=== PATIENT | female | born 1970 | race Caucasian/White ===

== ENCOUNTER 2016-07-01 06:03 | Day surgery (SDC) | payer OTHER ==
--- NOTE | 2016-06-30 19:14 | HISTORY AND PHYSICAL ---
ADMITTED: 07/01/2016 HISTORY OF PRESENT ILLNESS: The patient is a 46-year-old female with chief complaint of a painful left foot and ankle. States that her left ankle gives out multiple times. 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 Reports that it has gotten progressively worse. She wanted to finish out her season before moving forward with surgical procedures. She has tried and exhausted conservative care. MEDICAL/SURGICAL HISTORY: Past medical history: Includes a history of GERD, dysphagia, fatigue, insomnia and postmenopausal. Surgical history: Previous section. PRIMARY CARE PHYSICIAN: Jojo Solano MD MEDICATIONS: 1. Ibuprofen as needed. 2. Estradiol 2 mg tablets, take 1 by mouth daily. 3. Omeprazole 40 mg 1 by mouth daily. ALLERGIES: 1. CODEINE. 2. DROPERIDOL SOLUTION. SOCIAL HISTORY: She is , stay at home, self-employed. Does not smoke, rarely drinks. FAMILY HISTORY: Breast cancer. REVIEW OF SYSTEMS: Ten-point review of systems noncontributory to chief complaint. PHYSICAL EXAMINATION: GENERAL: The patient is alert, oriented x3. HEENT: PERRLA. Normocephalic. HEART: Regular rate and rhythm. Regular S1 and S2. No murmurs or gallops. LUNGS: Respiration clear to auscultation. No wheezing, rhonchi, or rales. ABDOMEN: Soft, tender, nondistended. No palpable masses. Normal tones. EXTREMITIES: Lower extremities/Vascular: Dorsalis pedis, posterior tibial pulses are palpable. Skin texture and turgor within normal limits. Orthopedically, there is pain to palpation of the Lisfranc joint with instability at the first cuneiform, second metatarsal base. Positive anterior drawer sign with 4 mm of anterior displacement, tenderness along the course of the anterior talofibular ligament. NEUROLOGIC: Deep tendon reflexes, epicritic sensations are intact. LAB/IMAGING: Imaging: Taken on an OrthoScan weightbearing platform revealed diastasis at the Lisfranc joint. Also, an ankle mortise slightly when in athletic position and noted diastasis under fluoroscopy at the lateral gutter. IMPRESSION: 1. Chronic ankle instability. 2. Lisfranc arthralgia. PLAN: The patient has consented for an arthrodesis of the Lisfranc joint with rigid internal fixation, ankle stabilization and an arthroscopy, as well as a harvesting of bone graft. There are no contraindications to surgery at this time. Surgery is scheduled on outpatient basis on 07/01/2016.
[~2016-07-01] VITALS: Ht 165.1 cm; Wt 80.4 kg
[~2016-07-01 06:03] MED LIST: CALCIUM600 M2 PO; DOCUSATE SODIU100 MG PO; ESTRADIOL2 MG PO; IBUPROFEN600 MG PO; MACROBID100 MG PO; OMEPRAZOLE20 M1 PO; PERCOCET1 TA1 PO; PX IRON27 MG PO; VITAMIN D-31000 UNIT PO
--- NOTE | 2016-07-01 07:07 | NUR ---
PREOP INSTRUCTIONS GIVEN AND SAFETY ISSUES DISCUSSED PT HAD QUESTIONS ANSWERED PT CONFIRMED PROCEDURE PT VERIFIED SIGNATURE PT MARKED SITE
[2016-07-01] MEDS ORDERED: ZOFRAN4 MG PO (10:22)
[2016-07-01] MEDS ORDERED: DILAUDID2 MG PO (10:22)
--- NOTE | 2016-07-01 10:24 | Provider's Discharge Care Plan ---
Problem, Goal, Plan Problem List 1. Sprain of other ligament of left ankle, subsequent encounter Goals: Improve function Instructions: Follow up as directed
--- NOTE | 2016-07-01 10:24 | Provider's Discharge Care Plan ---
Problem, Goal, Plan Problem List 1. Sprain of other ligament of left ankle, subsequent encounter Goals: Improve function Instructions: Follow up as directed
--- NOTE | 2016-07-01 11:06 | DIAGNOSTIC IMAGING REPORT ---
PROCEDURE: XR FOOT 3 VIEWS - LEFT INDICATION: POST-OP- IN PACU TECHNIQUE: Three views. COMPARISON: None. FINDINGS: There is a screw across the first cuneiform and the second metatarsal. Anatomic alignment. IMPRESSION: 1. Second metatarsal cuneiform joint fusion.
--- NOTE | 2016-07-01 11:45 | NUR ---
PT RETURNED FROM PACU LEFT FOOT ELEVATED ICE TO FOOT CAP REFILL LESS THAN 3 SEC DRESSING DRY AND INTACT
--- NOTE | 2016-07-01 12:00 | NUR ---
PT STATED PAIN INCREASEING SOME. DILAUDID 2 MG GIVEN PO AFTER FOOD
--- NOTE | 2016-07-01 12:41 | NUR ---
PT STATED PAIN ONLY DOWN SLIGHTLY. ASKED FOR THE SECOND DILAUDID THIS WAS GIVEN
--- NOTE | 2016-07-01 13:31 | NUR ---
PT STATED PAIN LEVEL DECREASED AFTER SECOND PILL UP TO BR VOIDED SPONTANOUSLY ASKED ABOUT GOING HOME REVIEWED DISCHARGE INSTRUCTIONS VERBAL AND WRITTEN PT AND DAUGHTER EXPRESSED UNDERSTANDING PT DISCHARGED PER WC ACCOMPANIED BY ADULT DAUGHTER
[2016-07-01 16:37] VITALS: BP 130/78
--- NOTE | 2016-07-01 16:39 | NUR ---
LATE ENTRY. PT WAS TRASPORTED TO SCU AT 1125. PRIOR D/C FROM PACU PT IS AWAKE AND ALERT. PT STATES THAT HER SEVERE LEFT FOOT PAIN IS DOWN TO 2/10 ON A PAIN SCALE FROM 0-10. PT DENIES NAUSEA. VSS. PT STATES SHE IS WARM AND COMFORTABLE. LEFT FOOT IS ELEVATED ON TWO PILLOWS, ICED PLACED BEHIND PT'S LEFT KNEE PER MD ORDER. REPORT GIVEN TO CECIL.
--- NOTE | 2016-07-01 21:02 | OPERATIVE REPORT ---
DATE OF SURGERY: 07/01/2016 SURGEON: Julian Soto DPM PREOPERATIVE DIAGNOSES: 1. Ankle arthralgia and instability 2. Lisfranc instability and arthralgia POSTOPERATIVE DIAGNOSES: 1. Ankle arthralgia and instability 2. Lisfranc instability and arthralgia PROCEDURES PERFORMED: 1. Ankle arthroscopy with debridement 2. Lateral ankle stabilization 3. Arthrodesis 4. Bone graft harvest HEMOSTASIS: Achieved by pneumatic thigh tourniquet inflated to 300 mmHg pressure. TOURNIQUET TIME: Total tourniquet time, 95 minutes. MATERIALS: 3-0 and 4-0 Polysorb, 4-0 Surgipro, 1 mL of DBM bone putty, one Arthrex internal brace with #2 FiberWire and 2 BioComposite SwiveLocks and one 32 mm 4.0 headless compression screw. INJECTABLES: Injected 20 mL of 0.5% bupivacaine plain. COMPLICATIONS: None. CONDITION: The patient tolerated anesthesia and procedure well. INDICATIONS: The patient is a 46-year-old female who has had chronic instability and a painful ankle and left foot. 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 States she would like to proceed with the surgical procedures. There are no contraindications to surgery at this time. SURGICAL TECHNIQUE: The patient was brought to the operating room, placed on operating room table in the supine position. At this time, general anesthetic was administered, as well as administration of the 1 g of IV Ancef. Upon successful delivery of a general anesthetic, a pneumatic tourniquet was then placed above the left knee. Left lower extremity was prepped and draped in the normal sterile fashion. Attention was then directed to procedure #1. Ankle arthroscopy with debridement: The left foot and ankle were then wrapped in an Esmarch bandage to exsanguinate the limb, tourniquet was then inflated. The leg was placed in a leg holt and an Arthrex ankle distractor was then employed. An 18- gauge needle was then utilized to identify the medial portal of the left ankle. An 11- blade was utilized to make a small portal; it was then dissected via portal dissection. A blunt trocar was then placed. The arthroscope was then placed within the anterior portion of the medial gutter of the left ankle. Upon entry, there was noted hemorrhagic synovitis. A corresponding lateral incision was made just on the anterior aspect of the lateral gutter. A #11 blade was made to make an incision, a dissection carried out via portal dissection with a curved hemostat. Blunt trocar was then placed. Then a small joint 3.5 shaver was then introduced. The hemorrhagic synovitis was resected on the anterior, medial and lateral aspects and posterior aspects of the ankle joint. The articulating surface was void of any osteochondral lesions. Visualizations of the intracapsular ligaments were seen and attachment points verified with no evidence of attenuation. Approximately 2500 mL of Lactated Ringer's were placed through the joint. Scope and shaver were removed. The portals were then reapproximated with 4-0 Surgipro. Attention was then directed to procedure #2. Lateral ankle stabilization: At this time, a linear incision was made on the anterolateral aspect of the distal fibula extending it slightly inferior to the fibula. It was deepened by sharp and blunt dissection. A Dallas elevator was then utilized to incise the periosteum of the distal anterior fibula and reflected. The fibers of the anterior talofibular ligament were identified, and under range of motion there was slight buckling of the ligament. The fibers were then followed towards its insertion point onto the anterior aspect of the Tailor's articulating surface or trocar surface and neck. A K-wire was driven obliquely on the distal anterior aspect of the fibula towards the lateral gutter, verified for proper placement under fluoroscopy. A 2.7 drill was utilized to drill. K-wire was removed. It was then tacked with the 2.7 tap and then a SwiveLock with a #2 FiberWire, 2 strands exiting and stably permanently fixated into the bone. Following the fibers of the anterior talofibular ligament anteriorly and medially, a guidewire was then driven obliquely into the body of the talus just inferior to the articulating surface of the talus, so oblique at a 45 degree angle and aimed towards the posteromedial malleolus and verified under fluoroscopy for proper placement, drilled initially with a 2.7 drill, over-drilled with a 3.4 and tapped accordingly. The FiberWire was then placed into an additional SwiveLock, foot held in a neutral position. The FiberTape was then inserted with proper tension. A Dallas elevator was placed under the tape, which was overlying the superior aspect of the anterior talofibular ligament. It was passed with some resistance, but the foot was placed through dorsal flexion, plantar flexion, inversion, and eversion instability was reestablished. The area was flushed. Capsule and retinaculum were reapproximated in a [id number] fashion. Subcutaneous with 4-0 Polysorb and skin edge was then reapproximated with 4-0 Surgipro. Attention was directed to procedure #3. Harvesting of a bone graft: This time, a linear incision was made on the lateral wall of the calcaneus just inferior to the lateral process of the calcaneus, taken down to bone, periosteal elevator was used to reflect the periosteum. At this time, a 6 mm bone harvester was then placed and cancellous bone was then harvested. The area was flushed. The harvest site was then backfilled with 1 mL of DBM bone putty. Periosteum was reapproximated with 3-0 Polysorb and skin edges were then reapproximated in running fashion with 4-0 Surgipro. Attention was then directed to procedure #4. Arthrodesis Lisfranc joint: At this time, utilizing fluoroscopy, a linear incision was made, bisection of the second and first metatarsal bases proximally to the medial cuneiform, lateral margin. Again, under fluoroscopy it was verified. A small joint distractor was then placed, allowing access to the Lisfranc joint and the ligament was denuded and the articulating surfaces and the joining surfaces were denuded with the curette. The bone graft and remaining portions of DBM bone putty were then placed. Then a large bone clamp was then utilized to close down the diastasis of the Lisfranc joint. A guidewire was then driven from the posterior aspect of the medial cuneiform and driven obliquely across the base of the second metatarsal in the orientation of the Lisfranc ligament. It then drilled with a 2.7 drill. Then, a 34 mm 4.0 headless compression screw was then placed with the bone clamp in place and stabilizing and fusing the Lisfranc joint. The area was flushed. The periosteum and capsule were approximated with 3 -0 Polysorb, subcutaneous with 4-0 Polysorb and skin edge was then reapproximated in a running fashion with 4-0 Surgipro. The areas were then locally anesthetized with the aforementioned local anesthetic. Pneumatic tourniquet was released with good reactive hyperemia and good digital perfusion noted. A compressive dressing was applied, as well as an Ortho-Glass posterior splint was placed, holding the foot in 90 degrees of the lower leg. The patient tolerated anesthesia, procedure well and left the room with vital signs stable. While in recovery, written instructions for absolutely nonweightbearing with the aid of crutches and/or knee scooter. Prognosis is guarded. She will be discharged home in stable condition. She is to follow back with me in 3-5 days.
== END 2016-07-01 13:20 | disposition home or self-care (01) ==
LOC: OR SRH 06:03 → SCU SRH 06:06 → OR SRH 07:30
PROVIDERS: Podiatrist
PROC: 0SBG4ZZ Excision of Left Ankle Joint, Percutaneous Endoscopic Approach (ICD-10-PCS; principal; 2016-07-01 07:30)
PROC: 0QBM0ZZ Excision of Left Tarsal, Open Approach (ICD-10-PCS; principal; 2016-07-01 07:30)
PROC: 0SGL07Z Fusion of Left Tarsometatarsal Joint with Autologous Tissue Substitute, Open Approach (ICD-10-PCS; principal; 2016-07-01 07:30)
PROC: 0MQR0ZZ Repair Left Ankle Bursa and Ligament, Open Approach (ICD-10-PCS; principal; 2016-07-01 07:30)
DX: M25.372 Other instability, left ankle (principal); S93.331A Other subluxation of right foot, initial encounter; M65.872 Other synovitis and tenosynovitis, left ankle and foot